=== PATIENT | male | born 1960 | race African-American/Black ===

== ENCOUNTER 2021-12-23 10:27 | Inpatient (IN) ==
[2021-12-23] MEDS ORDERED: SODIUM CHLORIDE 0.9% 1,000 ML IV STA (10:51)
[2021-12-23 11:01] LABS: Basophils # 0.1 10*3/uL (0.0-0.2); Basophils % 0.5 % (0.0-0.8); Eosinophils # 0.2 10*3/uL (0.0-0.87); Eosinophils % 1.6 % (0.00-10.9); Hematocrit 29.5 VOL% (42.0-52.0); Hemoglobin 8.7 GM/DL (14.0-18.0); Immature Granulocytes % 1.1 %; Immature Granulocytes Absolute 0.12 #; Lymphocytes # 2.6 10*3/uL (1.4-4.0); Lymphocytes % 23.4 % (21.2-54.2); Mean Corpuscular HGB Conc 29.5 GM/DL (32-36); Mean Corpuscular Volume 98.7 FL (87-102); Monocytes # 0.7 10*3/uL (0.11-0.8); Monocytes % 6.3 % (1.7-12.7); NRBC # 0.04 10*3/uL; Neutrophils % 67.1 % (38.7-73.9); Platelet Count 452 T/CUMM (130-400); Red Blood Count 2.99 MC/CUMM (3.8-5.5); Red Cell Distribution Width 15.9 % (9.3-17.3)
[2021-12-23 11:14] LABS: Albumin 2.3 G/DL (3.4-5.0); Bilirubin,Total 0.5 MG/DL (0.20-1.00); Calcium 9.3 MG/DL (8.5-10.1); Osmolality,Calculated 335.9 MOS/KG (273-304); PT Patient Result 11.4 SECS (10.5-12.0); Partial Thromboplastin Time 26.6 SECS (23.7-32.9); Potassium 3.4 MMOL/L (3.5-5.1); Total Protein 6.9 G/DL (6.4-8.2)
[2021-12-23 12:08] LABS: Bacteria,Urine Many /HPF (Few); Bilirubin,Urine Negative (Negative); Blood, Urine Moderate mg/dL (Negative); Glucose,Urine (UA) Negative (Negative); Ketones,Urine Negative (Negative); Mucus,Urine Many /LPF (Occasional); Nitrite,Urine Negative (Negative); Protein,Urine 100 mg/dL (Negative); RBC,Urine 23 /HPF (0-4); Urine Appearance Cloudy (Clear); Urine Color Yellow (Yellow); Urine Specific Gravity 1.015 (1.001-1.035); Urine Urobilinogen 0.2 eU/dL (<2.0)
[2021-12-23] MEDS ORDERED: LEVOFLOXACIN INJ 250 MG/50 ML PREMIX IV SCH (13:30)
[2021-12-23] MEDS ORDERED: SODIUM CHLORIDE 0.45% 500 ML IV ONE (13:50)
[2021-12-23] MEDS ORDERED: GLUCAGON 1 MG VIAL IM PRN (14:32)
[2021-12-23] MEDS ORDERED: DEXTROSE 10% 250 ML BAG IV PRN (14:32)
[2021-12-23] MEDS ORDERED: POTASSIUM CHLORIDE 20 MEQ TABLET PO PRN (14:38)
[2021-12-23] MEDS ORDERED: cefTRIAXone 1,000 MG in SODIUM CHLORIDE 0.9% 100 ML IV SCH (15:30)
[2021-12-23] MEDS: DEXTROSE 5% 1,000 ML IV SCH (16:00)
[2021-12-23 19:28] LABS: Calcium 8.9 MG/DL (8.5-10.1); Osmolality,Calculated 335.4 MOS/KG (273-304)
[2021-12-23 20:22] LABS: Calcium 9.1 MG/DL (8.5-10.1); Osmolality,Calculated 329.1 MOS/KG (273-304); Potassium 4.7 MMOL/L (3.5-5.1)
[2021-12-24 01:15] LABS: Basophils % 0.3 % (0.0-0.8); Eosinophils # 0.2 10*3/uL (0.0-0.87); Eosinophils % 2.3 % (0.00-10.9); Hematocrit 25.7 VOL% (42.0-52.0); Hemoglobin 7.6 GM/DL (14.0-18.0); Immature Granulocytes Absolute 0.09 #; Lymphocytes % 23.3 % (21.2-54.2); Mean Corpuscular HGB Conc 29.6 GM/DL (32-36); Mean Corpuscular Volume 98.1 FL (87-102); Mean Platelet Volume 8.8 FL (9.6-12.0); Monocytes # 0.5 10*3/uL (0.11-0.8); Monocytes % 5.9 % (1.7-12.7); Neutrophils % 67.2 % (38.7-73.9); Platelet Count 356 T/CUMM (130-400); Red Blood Count 2.62 MC/CUMM (3.8-5.5); Red Cell Distribution Width 15.8 % (9.3-17.3); White Blood Count 8.7 T/CUMM (4-12)
[2021-12-24] MEDS: DEXTROSE 5% 1,000 ML IV SCH ×6 (01:20→19:16)
[2021-12-24 01:30] LABS: Phosphorous 4.4 MG/DL (2.5-4.9)
[2021-12-24 01:33] LABS: Albumin 2.1 G/DL (3.4-5.0); Bilirubin,Total 0.6 MG/DL (0.20-1.00); Calcium 9.1 MG/DL (8.5-10.1); Potassium 2.7 MMOL/L (3.5-5.1); Total Protein 6.9 G/DL (6.4-8.2)
[2021-12-24 07:49] LABS: Calcium 8.6 MG/DL (8.5-10.1); Osmolality,Calculated 327.4 MOS/KG (273-304); Potassium 3.2 MMOL/L (3.5-5.1)
[2021-12-24] MEDS ORDERED: POTASSIUM BICARB EFFERVESCENT 20 MEQ TAB.EFF PEG ONE (12:21)
[2021-12-24 12:52] LABS: Calcium 8.7 MG/DL (8.5-10.1); Osmolality,Calculated 323.7 MOS/KG (273-304); Potassium 3.2 MMOL/L (3.5-5.1)
[2021-12-24 13:10] LABS: Hematocrit 25.4 VOL% (42.0-52.0); Hemoglobin 7.6 GM/DL (14.0-18.0)
[2021-12-24] MEDS: cefTRIAXone 2,000 MG in SODIUM CHLORIDE 0.9% 100 ML IV SCH (15:56)
[2021-12-25] MEDS: DEXTROSE 5% 1,000 ML IV SCH ×3 (00:32→18:30)
[2021-12-25 05:16] LABS: Basophils % 0.4 % (0.0-0.8); Eosinophils # 0.3 10*3/uL (0.0-0.87); Eosinophils % 3.4 % (0.00-10.9); Hematocrit 24.3 VOL% (42.0-52.0); Hemoglobin 7.2 GM/DL (14.0-18.0); Immature Granulocytes % 1.1 %; Immature Granulocytes Absolute 0.08 #; Lymphocytes # 1.7 10*3/uL (1.4-4.0); Lymphocytes % 23.8 % (21.2-54.2); Mean Corpuscular HGB Conc 29.6 GM/DL (32-36); Monocytes # 0.3 10*3/uL (0.11-0.8); Monocytes % 4.4 % (1.7-12.7); NRBC # 0.03 10*3/uL; Neutrophils % 66.9 % (38.7-73.9); Platelet Count 358 T/CUMM (130-400); Red Blood Count 2.53 MC/CUMM (3.8-5.5); Red Cell Distribution Width 15.2 % (9.3-17.3); White Blood Count 7.3 T/CUMM (4-12)
[2021-12-25 05:45] LABS: Alanine Aminotransferase 237 U/L (16-61); Albumin 2.1 G/DL (3.4-5.0); Alkaline Phosphatase 159 U/L (45-117); Aspartate Amino Transferase 148 U/L (0-37); Bilirubin,Total < 0.39 MG/DL (0.20-1.00); Blood Urea Nitrogen 78 MG/DL (7-18); Calcium 8.4 MG/DL (8.5-10.1); Carbon Dioxide 24 MMOL/L (21-32); Chloride 106 MMOL/L (98-107); Glucose 201 MG/DL (74-106); Osmolality,Calculated 307.4 MOS/KG (273-304); Potassium 3.5 MMOL/L (3.5-5.1); Sodium 140 MMOL/L (136-145); Total Protein 6.7 G/DL (6.4-8.2)
[2021-12-25 05:52] LABS: Folate 18.82 NG/ML (5.38-24.0)
[2021-12-25 10:12] LABS: Hepatitis B Core IgM Quant < 0.05 Index; Hepatitis B Surface Ag Quant < 0.10 Index; Hepatitis B Surface Ag Result Non-Reactive (NonReactive); Hepatitis C Virus Ab Quant 0.12 Index; Hepatitis C Virus Ab Result Non-Reactive (NonReactive)
[2021-12-25] MEDS: ASPIRIN CHEW 81 MG TABLET PO SCH (10:28)
[2021-12-25] MEDS: amLODIPine 2.5 MG TABLET PEG SCH (10:29)
[2021-12-25] MEDS: INSULIN GLARGINE 100 UNIT/ML SUBCUT SCH (10:29)
[2021-12-25] MEDS: INSULIN LISPRO 100 UNIT/ML SUBCUT SCH ×2 (12:41→19:03)
[2021-12-25] MEDS ORDERED: SODIUM CHLORIDE 0.9% 1,000 ML IV PRN (14:12)
[2021-12-25] MEDS: cefTRIAXone 2,000 MG in SODIUM CHLORIDE 0.9% 100 ML IV SCH (16:22)
[2021-12-25] MEDS: METOPROLOL TARTRATE 50 MG TABLET PEG SCH (22:16)
[2021-12-26] MEDS: ONDANSETRON 4 MG/2 ML VIAL IV PRN (01:15)
[2021-12-26] MEDS: INSULIN LISPRO 100 UNIT/ML SUBCUT SCH ×4 (02:39→17:24)
[2021-12-26 06:09] LABS: Basophils % 0.2 % (0.0-0.8); Eosinophils # 0.3 10*3/uL (0.0-0.87); Eosinophils % 2.5 % (0.00-10.9); Immature Granulocytes % 0.9 %; Immature Granulocytes Absolute 0.09 #; Lymphocytes # 1.7 10*3/uL (1.4-4.0); Lymphocytes % 16.2 % (21.2-54.2); Mean Corpuscular Volume 92.9 FL (87-102); Mean Platelet Volume 9.1 FL (9.6-12.0); Monocytes # 0.5 10*3/uL (0.11-0.8); NRBC # 0.02 10*3/uL; Neutrophils % 75.2 % (38.7-73.9); Platelet Count 342 T/CUMM (130-400); Red Cell Distribution Width 15.9 % (9.3-17.3)
[2021-12-26 06:11] LABS: Red Blood Count 3.12 MC/CUMM (3.8-5.5); White Blood Count 10.2 T/CUMM (4-12)
[2021-12-26 06:33] LABS: Albumin 2.2 G/DL (3.4-5.0); Bilirubin,Total 0.4 MG/DL (0.20-1.00); Calcium 9.4 MG/DL (8.5-10.1); Osmolality,Calculated 300.4 MOS/KG (273-304); Potassium 3.7 MMOL/L (3.5-5.1); Total Protein 7.1 G/DL (6.4-8.2)
[2021-12-26] MEDS ORDERED: INSULIN GLARGINE 100 UNIT/ML SUBCUT SCH (09:00)
[2021-12-26] MEDS: POLYETHYLENE GLYCOL POWDER 17 GM PACK PEG SCH (11:26)
[2021-12-26] MEDS: ASPIRIN CHEW 81 MG TABLET PO SCH (11:26)
[2021-12-26] MEDS: amLODIPine 2.5 MG TABLET PEG SCH (11:26)
[2021-12-26] MEDS: METOPROLOL TARTRATE 50 MG TABLET PEG SCH ×2 (11:27→21:30)
[2021-12-26] MEDS: INSULIN GLARGINE 100 UNIT/ML SUBCUT SCH (11:27)
[2021-12-26] MEDS: DEXTROSE 5% 1,000 ML IV SCH ×2 (13:01→21:29)
[2021-12-26] MEDS: cefTRIAXone 2,000 MG in SODIUM CHLORIDE 0.9% 100 ML IV SCH (16:49)
[2021-12-27] MEDS: INSULIN LISPRO 100 UNIT/ML SUBCUT SCH ×5 (01:45→23:13)
[2021-12-27 05:36] LABS: Basophils % 0.2 % (0.0-0.8); Eosinophils # 0.2 10*3/uL (0.0-0.87); Eosinophils % 2.1 % (0.00-10.9); Hemoglobin 9.6 GM/DL (14.0-18.0); Lymphocytes # 1.9 10*3/uL (1.4-4.0); Lymphocytes % 18.9 % (21.2-54.2); Mean Corpuscular Volume 92.6 FL (87-102); Mean Platelet Volume 9.4 FL (9.6-12.0); Monocytes # 0.7 10*3/uL (0.11-0.8); Monocytes % 6.7 % (1.7-12.7); Neutrophils % 71.1 % (38.7-73.9); Platelet Count 295 T/CUMM (130-400); Red Blood Count 3.24 MC/CUMM (3.8-5.5); Red Cell Distribution Width 15.9 % (9.3-17.3); White Blood Count 9.9 T/CUMM (4-12)
[2021-12-27 05:56] LABS: Alanine Aminotransferase 152 U/L (16-61); Albumin 2.4 G/DL (3.4-5.0); Alkaline Phosphatase 145 U/L (45-117); Aspartate Amino Transferase 55 U/L (0-37); Bilirubin,Total < 0.39 MG/DL (0.20-1.00); Blood Urea Nitrogen 57 MG/DL (7-18); Calcium 9.1 MG/DL (8.5-10.1); Carbon Dioxide 24 MMOL/L (21-32); Chloride 105 MMOL/L (98-107); Glucose 186 MG/DL (74-106); Osmolality,Calculated 295.7 MOS/KG (273-304); Potassium 3.9 MMOL/L (3.5-5.1); Sodium 138 MMOL/L (136-145); Total Protein 7.7 G/DL (6.4-8.2)
[2021-12-27] MEDS: INSULIN GLARGINE 100 UNIT/ML SUBCUT SCH (08:34)
[2021-12-27] MEDS: POLYETHYLENE GLYCOL POWDER 17 GM PACK PEG SCH (08:34)
[2021-12-27] MEDS: ASPIRIN CHEW 81 MG TABLET PO SCH (08:34)
[2021-12-27] MEDS: amLODIPine 2.5 MG TABLET PEG SCH (08:35)
[2021-12-27] MEDS: METOPROLOL TARTRATE 50 MG TABLET PEG SCH ×2 (08:35→20:34)
[2021-12-27] MEDS: ERTAPENEM 1,000 MG in SODIUM CHLORIDE 0.9% 100 ML IV SCH (08:47)
[2021-12-27] MEDS: DEXTROSE 5% 1,000 ML IV SCH ×3 (08:47→21:00)
[2021-12-28] MEDS: INSULIN LISPRO 100 UNIT/ML SUBCUT SCH ×3 (06:15→18:00)
[2021-12-28] MEDS: ASPIRIN CHEW 81 MG TABLET PO SCH (10:09)
[2021-12-28] MEDS: amLODIPine 2.5 MG TABLET PEG SCH (10:09)
[2021-12-28] MEDS: METOPROLOL TARTRATE 50 MG TABLET PEG SCH ×2 (10:09→20:34)
[2021-12-28] MEDS: POLYETHYLENE GLYCOL POWDER 17 GM PACK PEG SCH (10:10)
[2021-12-28] MEDS: INSULIN GLARGINE 100 UNIT/ML SUBCUT SCH (10:11)
[2021-12-28] MEDS: ERTAPENEM 1,000 MG in SODIUM CHLORIDE 0.9% 100 ML IV SCH (10:13)
[2021-12-28] MEDS: DEXTROSE 5% 1,000 ML IV SCH (15:05)
[2021-12-28] MEDS: ONDANSETRON 4 MG/2 ML VIAL IV PRN (23:52)
[2021-12-29] MEDS: INSULIN LISPRO 100 UNIT/ML SUBCUT SCH ×3 (00:35→12:27)
[2021-12-29 06:16] LABS: Calcium 9.3 MG/DL (8.5-10.1); Osmolality,Calculated 289.5 MOS/KG (273-304); Potassium 4.4 MMOL/L (3.5-5.1)
[2021-12-29] MEDS: ASPIRIN CHEW 81 MG TABLET PO SCH (10:27)
[2021-12-29] MEDS: METOPROLOL TARTRATE 50 MG TABLET PEG SCH (10:28)
[2021-12-29] MEDS: amLODIPine 2.5 MG TABLET PEG SCH (10:28)
[2021-12-29] MEDS: POLYETHYLENE GLYCOL POWDER 17 GM PACK PEG SCH (10:28)
[2021-12-29] MEDS: ERTAPENEM 1,000 MG in SODIUM CHLORIDE 0.9% 100 ML IV SCH (10:29)
[2021-12-29] MEDS: INSULIN GLARGINE 100 UNIT/ML SUBCUT SCH (10:53)
[2021-12-29 12:02] VITALS: BP 126/75
== END 2021-12-29 14:55 | DRG 689 ==
LOC: N.ED 10:27 → N.EDINP 14:32 → SUATTDRO 14:32 → N.EDINP 18:18 → N.TELEN 18:27
PROVIDERS: ADMIT Internal Medicine Geriatric Medicine; ATTEND Family Medicine

== ENCOUNTER 2022-02-07 18:33 | Inpatient (IN) ==
[2022-02-07] MEDS ORDERED: SODIUM CHLORIDE 0.9% 500 ML IV STA (19:24)
[2022-02-07] MEDS ORDERED: ONDANSETRON 4 MG/2 ML VIAL IV STA (19:24)
[2022-02-07] MEDS ORDERED: methylPREDNISolone SOD SUC 125 MG/2 ML VIAL IV STA (19:24)
[2022-02-07] MEDS ORDERED: ALBUTEROL/IPRATROPIUM 3 ML NEB RESP TX STA (19:24)
[2022-02-07] MEDS ORDERED: LEVOFLOXACIN INJ 750 MG/150 ML PREMIX IV STA (21:06)
[2022-02-07 21:31] LABS: Albumin 2.3 G/DL (3.4-5.0); Bilirubin,Total 0.5 MG/DL (0.20-1.00); Calcium 8.3 MG/DL (8.5-10.1); Osmolality,Calculated 319.3 MOS/KG (273-304); Potassium 3.1 MMOL/L (3.5-5.1); Total Protein 7.9 G/DL (6.4-8.2)
[2022-02-07 21:35] LABS: Hematocrit 24.6 VOL% (42.0-52.0); Hemoglobin 7.2 GM/DL (14.0-18.0); Immature Granulocytes % 0.5 %; Immature Granulocytes Absolute 0.03 #; Lymphocytes # 2.5 10*3/uL (1.4-4.0); Lymphocytes % 38.5 % (21.2-54.2); Mean Corpuscular HGB Conc 29.3 GM/DL (32-36); Mean Corpuscular Volume 97.2 FL (87-102); Mean Platelet Volume 9.6 FL (9.6-12.0); Monocytes # 0.2 10*3/uL (0.11-0.8); Monocytes % 2.6 % (1.7-12.7); Neutrophils % 58.4 % (38.7-73.9); Platelet Count 165 T/CUMM (130-400); Red Blood Count 2.53 MC/CUMM (3.8-5.5); Red Cell Distribution Width 19.7 % (9.3-17.3); White Blood Count 6.5 T/CUMM (4-12)
[2022-02-07] MEDS ORDERED: SODIUM CHLORIDE 0.9% 1,000 ML IV STA (22:02)
[2022-02-07 22:35] LABS: Band Neutrophils 1 % (0-10); Lymphocytes 26 % (20-55); Platelet Estimate Adequate; Total Cells Counted 100
[2022-02-07 22:48] LABS: Bilirubin,Urine Negative (Negative); Blood, Urine Trace mg/dL (Negative); Glucose,Urine (UA) Negative (Negative); Ketones,Urine Negative (Negative); Nitrite,Urine Negative (Negative); Protein,Urine 100 mg/dL (Negative); RBC,Urine 0-4 /HPF (0-4); Urine Appearance Clear (Clear); Urine Color Yellow (Yellow); Urine Urobilinogen 0.2 eU/dL (<2.0); Urine pH 5.5 (4.5-8.0)
[2022-02-07 22:49] LABS: Amorphous Crystals,Urine Moderate /HPF (Few)
[2022-02-07] MEDS ORDERED: ACETAMINOPHEN 325 MG TABLET PEG PRN (23:10)
[2022-02-07] MEDS ORDERED: ONDANSETRON 4 MG/2 ML VIAL IV PRN (23:10)
[2022-02-07] MEDS ORDERED: GLUCAGON 1 MG VIAL IM PRN (23:10)
[2022-02-07] MEDS ORDERED: DEXTROSE 10% 250 ML BAG IV PRN (23:31)
[2022-02-08] MEDS: ALBUTEROL/IPRATROPIUM 3 ML NEB RESP TX SCH ×4 (01:20→20:00)
[2022-02-08] MEDS: INSULIN REGULAR 100 UNIT/ML SUBCUT SCH ×5 (01:25→19:17)
[2022-02-08] MEDS: LACTATED RINGERS 1,000 ML IV SCH ×2 (03:14→14:21)
[2022-02-08] MEDS ORDERED: POTASSIUM CHLORIDE RIDER 10 MEQ/100 ML PREMIX IV PRN (05:57)
[2022-02-08] MEDS ORDERED: POTASSIUM BICARB EFFERVESCENT 20 MEQ TAB.EFF PER TUBE PRN (05:57)
[2022-02-08] MEDS: ASCORBIC ACID 500 MG TABLET PEG SCH ×2 (08:44→22:53)
[2022-02-08] MEDS: PANTOPRAZOLE 40 MG VIAL IV SCH (08:44)
[2022-02-08] MEDS: ENOXAPARIN 30 MG/0.3 ML SYRINGE SUBCUT SCH (08:45)
[2022-02-08] MEDS ORDERED: CHOLECALCIFEROL 1,000 UNIT TABLET PEG SCH (09:00)
[2022-02-08] MEDS ORDERED: DEXAMETHASONE 4 MG/1 ML VIAL IV SCH (09:00)
[2022-02-08] MEDS ORDERED: ZINC GLUCONATE 50 MG TABLET PEG SCH (09:00)
[2022-02-08 09:01] LABS: INR 1.1; PT Patient Result 11.6 SECS (10.1-12.1)
[2022-02-08 09:12] LABS: Calcium 8.4 MG/DL (8.5-10.1); Osmolality,Calculated 323.8 MOS/KG (273-304); Potassium 3.3 MMOL/L (3.5-5.1)
[2022-02-08 09:29] LABS: Ferritin 6333.5 ng/mL (26-388)
[2022-02-08 09:43] LABS: Hematocrit 20.2 VOL% (42.0-52.0); Immature Granulocytes % 0.4 %; Immature Granulocytes Absolute 0.02 #; Lymphocytes # 0.4 10*3/uL (1.4-4.0); Lymphocytes % 9.5 % (21.2-54.2); Mean Corpuscular HGB Conc 29.2 GM/DL (32-36); Mean Corpuscular Volume 96.2 FL (87-102); Mean Platelet Volume 9.8 FL (9.6-12.0); Monocytes # 0.1 10*3/uL (0.11-0.8); Monocytes % 1.8 % (1.7-12.7); Neutrophils % 88.3 % (38.7-73.9); Platelet Count 149 T/CUMM (130-400); Red Cell Distribution Width 19.2 % (9.3-17.3); White Blood Count 4.5 T/CUMM (4-12)
[2022-02-08 10:08] LABS: Hemoglobin 5.9 GM/DL (14.0-18.0)
[2022-02-08 10:10] LABS: Hypochromia 1+; Lymphocytes 8 % (20-55); Microcytosis 1+; Platelet Estimate Adequate; Total Cells Counted 100
[2022-02-08 11:51] LABS: Hematocrit 21.4 VOL% (42.0-52.0)
[2022-02-08 11:55] LABS: Hemoglobin 6.2 GM/DL (14.0-18.0)
[2022-02-08] MEDS ORDERED: SODIUM CHLORIDE 0.9% 1,000 ML IV PRN (12:07)
[2022-02-08] MEDS ORDERED: cefTRIAXone 1,000 MG VIAL IV SCH (13:00)
[2022-02-08] MEDS: CETIRIZINE 10 MG TABLET PO SCH (14:20)
[2022-02-08] MEDS: FAMOTIDINE 20 MG TABLET PO SCH ×2 (14:21→22:54)
[2022-02-08] MEDS: methylPREDNISolone SOD SUC 40 MG/1 ML VIAL IV SCH ×2 (14:22→22:54)
[2022-02-08] MEDS: AZITHROMYCIN INJ 500 MG in SODIUM CHLORIDE 0.9% 250 ML IV SCH (14:22)
[2022-02-08] MEDS: cefTRIAXone 1,000 MG in SODIUM CHLORIDE 0.9% 100 ML IV SCH (15:26)
[2022-02-08] MEDS: ZINC OXIDE 16% PASTE 57 GM TUBE TOP SCH ×2 (15:27→22:55)
[2022-02-08] MEDS: CHOLECALCIFEROL 5,000 UNIT TABLET PEG SCH ×2 (15:27→22:53)
[2022-02-08] MEDS: ATORVASTATIN 80 MG TABLET PEG SCH (22:52)
[2022-02-08] MEDS: MELATONIN 3 MG TABLET PO SCH (22:52)
[2022-02-09] MEDS: ALBUTEROL/IPRATROPIUM 3 ML NEB RESP TX SCH ×4 (00:11→19:49)
[2022-02-09] MEDS: INSULIN REGULAR 100 UNIT/ML SUBCUT SCH ×4 (02:46→17:57)
[2022-02-09] MEDS: methylPREDNISolone SOD SUC 40 MG/1 ML VIAL IV SCH ×4 (04:48→21:32)
[2022-02-09 07:15] LABS: Basophils % 0.1 % (0.0-0.8); Lymphocytes # 0.4 10*3/uL (1.4-4.0)
[2022-02-09 07:20] LABS: Hematocrit 29.5 VOL% (42.0-52.0); Immature Granulocytes % 0.8 %; Immature Granulocytes Absolute 0.07 #; Lymphocytes % 5.3 % (21.2-54.2); Mean Corpuscular HGB Conc 30.8 GM/DL (32-36); Mean Corpuscular Volume 91.9 FL (87-102); Mean Platelet Volume 9.2 FL (9.6-12.0); Monocytes # 0.2 10*3/uL (0.11-0.8); Monocytes % 2.8 % (1.7-12.7); NRBC # 0.03 10*3/uL; Platelet Count 155 T/CUMM (130-400); Red Blood Count 3.21 MC/CUMM (3.8-5.5); Red Cell Distribution Width 18.5 % (9.3-17.3)
[2022-02-09 07:21] LABS: Hemoglobin 9.1 GM/DL (14.0-18.0); White Blood Count 8.3 T/CUMM (4-12)
[2022-02-09 07:43] LABS: Lymphocytes 3 % (20-55); Total Cells Counted 100
[2022-02-09 07:44] LABS: Hypochromia Slight; Microcytosis Slight; Platelet Estimate Adequate
[2022-02-09 07:48] LABS: Bilirubin,Total 0.4 MG/DL (0.20-1.00); Calcium 7.8 MG/DL (8.5-10.1); Ferritin 5572.4 ng/mL (26-388); Osmolality,Calculated 337.4 MOS/KG (273-304); Potassium 3.8 MMOL/L (3.5-5.1)
[2022-02-09] MEDS: PANTOPRAZOLE 40 MG VIAL IV SCH (08:37)
[2022-02-09] MEDS: ENOXAPARIN 30 MG/0.3 ML SYRINGE SUBCUT SCH (08:38)
[2022-02-09] MEDS: ASCORBIC ACID 500 MG TABLET PEG SCH ×2 (08:38→21:30)
[2022-02-09] MEDS: FAMOTIDINE 20 MG TABLET PO SCH ×2 (08:39→21:31)
[2022-02-09] MEDS: LACTATED RINGERS 1,000 ML IV SCH (08:39)
[2022-02-09] MEDS: CHOLECALCIFEROL 5,000 UNIT TABLET PEG SCH ×2 (08:39→21:31)
[2022-02-09] MEDS: CETIRIZINE 10 MG TABLET PO SCH (08:39)
[2022-02-09] MEDS: ZINC GLUCONATE 50 MG TABLET PEG SCH (08:39)
[2022-02-09] MEDS: ZINC OXIDE 16% PASTE 57 GM TUBE TOP SCH ×2 (08:40→21:33)
[2022-02-09] MEDS: AZITHROMYCIN INJ 500 MG in SODIUM CHLORIDE 0.9% 250 ML IV SCH (13:14)
[2022-02-09] MEDS: cefTRIAXone 1,000 MG in SODIUM CHLORIDE 0.9% 100 ML IV SCH (15:00)
[2022-02-09] MEDS ORDERED: LEVOFLOXACIN INJ 500 MG/100 ML PREMIX IV SCH (21:00)
[2022-02-09] MEDS: MELATONIN 3 MG TABLET PO SCH (21:30)
[2022-02-09] MEDS: ATORVASTATIN 80 MG TABLET PEG SCH (21:36)
[2022-02-10] MEDS: ALBUTEROL/IPRATROPIUM 3 ML NEB RESP TX SCH ×4 (00:55→20:20)
[2022-02-10] MEDS: INSULIN REGULAR 100 UNIT/ML SUBCUT SCH ×4 (02:16→17:36)
[2022-02-10] MEDS: methylPREDNISolone SOD SUC 40 MG/1 ML VIAL IV SCH ×4 (04:58→21:30)
[2022-02-10 06:44] LABS: Immature Granulocytes % 1.1 %; Immature Granulocytes Absolute 0.09 #; Lymphocytes # 0.4 10*3/uL (1.4-4.0); Lymphocytes % 4.1 % (21.2-54.2); Mean Corpuscular Volume 92.1 FL (87-102); Mean Platelet Volume 9.4 FL (9.6-12.0); Monocytes # 0.4 10*3/uL (0.11-0.8); Monocytes % 4.9 % (1.7-12.7); NRBC # 0.04 10*3/uL; Neutrophils % 89.9 % (38.7-73.9); Platelet Count 188 T/CUMM (130-400); Red Blood Count 3.15 MC/CUMM (3.8-5.5); Red Cell Distribution Width 18.7 % (9.3-17.3); White Blood Count 8.5 T/CUMM (4-12)
[2022-02-10 07:07] LABS: Hypochromia Slight; Lymphocytes 2 % (20-55); Microcytosis Slight; Nucleated Red Blood Cells 1 /100 WBC (0-5); Platelet Estimate Adequate; Total Cells Counted 100
[2022-02-10 07:20] LABS: Alanine Aminotransferase 114 U/L (16-61); Albumin 2.1 G/DL (3.4-5.0); Alkaline Phosphatase 129 U/L (45-117); Aspartate Amino Transferase 50 U/L (0-37); Bilirubin,Total < 0.39 MG/DL (0.20-1.00); Blood Urea Nitrogen 127 MG/DL (7-18); Calcium 7.7 MG/DL (8.5-10.1); Carbon Dioxide 21 MMOL/L (21-32); Chloride 116 MMOL/L (98-107); Glucose 227 MG/DL (74-106); Potassium 3.9 MMOL/L (3.5-5.1); Sodium 150 MMOL/L (136-145); Total Protein 6.9 G/DL (6.4-8.2)
[2022-02-10] MEDS: PANTOPRAZOLE 40 MG VIAL IV SCH (08:26)
[2022-02-10] MEDS: ENOXAPARIN 30 MG/0.3 ML SYRINGE SUBCUT SCH (08:27)
[2022-02-10] MEDS: CHOLECALCIFEROL 5,000 UNIT TABLET PEG SCH ×2 (08:28→21:31)
[2022-02-10] MEDS: ASCORBIC ACID 500 MG TABLET PEG SCH ×2 (08:28→21:30)
[2022-02-10] MEDS: ZINC GLUCONATE 50 MG TABLET PEG SCH (08:28)
[2022-02-10] MEDS: FAMOTIDINE 20 MG TABLET PO SCH ×2 (08:28→21:31)
[2022-02-10] MEDS: ZINC OXIDE 16% PASTE 57 GM TUBE TOP SCH ×2 (08:29→21:30)
[2022-02-10] MEDS: CETIRIZINE 10 MG TABLET PO SCH (08:30)
[2022-02-10] MEDS: AZITHROMYCIN INJ 500 MG in SODIUM CHLORIDE 0.9% 250 ML IV SCH (12:26)
[2022-02-10] MEDS: cefTRIAXone 1,000 MG in SODIUM CHLORIDE 0.9% 100 ML IV SCH (15:09)
[2022-02-10] MEDS: SODIUM CHLORIDE 0.45% 1,000 ML IV SCH (17:35)
[2022-02-10] MEDS: ATORVASTATIN 80 MG TABLET PEG SCH (21:31)
[2022-02-10] MEDS: MELATONIN 3 MG TABLET PO SCH (21:31)
[2022-02-11] MEDS: ALBUTEROL/IPRATROPIUM 3 ML NEB RESP TX SCH ×4 (00:50→19:28)
[2022-02-11] MEDS: INSULIN REGULAR 100 UNIT/ML SUBCUT SCH ×4 (01:53→17:06)
[2022-02-11 06:05] LABS: Calcium 7.4 MG/DL (8.5-10.1); Osmolality,Calculated 352.1 MOS/KG (273-304); Potassium 4.5 MMOL/L (3.5-5.1)
[2022-02-11] MEDS: methylPREDNISolone SOD SUC 40 MG/1 ML VIAL IV SCH ×3 (06:08→21:01)
[2022-02-11] MEDS: SODIUM CHLORIDE 0.45% 1,000 ML IV SCH ×2 (06:18→21:04)
[2022-02-11] MEDS ORDERED: INSULIN NPH 100 UNIT/ML SUBCUT SCH (09:00)
[2022-02-11] MEDS: ZINC OXIDE 16% PASTE 57 GM TUBE TOP SCH ×2 (09:38→21:01)
[2022-02-11] MEDS: ENOXAPARIN 30 MG/0.3 ML SYRINGE SUBCUT SCH (09:39)
[2022-02-11] MEDS: METOPROLOL TARTRATE 25 MG TABLET PO SCH ×2 (09:39→20:56)
[2022-02-11] MEDS: FAMOTIDINE 20 MG TABLET PO SCH ×2 (09:39→20:55)
[2022-02-11] MEDS: ASCORBIC ACID 500 MG TABLET PEG SCH ×2 (09:39→20:56)
[2022-02-11] MEDS: PANTOPRAZOLE 40 MG VIAL IV SCH (09:39)
[2022-02-11] MEDS: CETIRIZINE 10 MG TABLET PO SCH (09:40)
[2022-02-11] MEDS: ZINC GLUCONATE 50 MG TABLET PEG SCH (09:40)
[2022-02-11] MEDS: CHOLECALCIFEROL 5,000 UNIT TABLET PEG SCH ×2 (09:40→20:56)
[2022-02-11] MEDS: AZITHROMYCIN INJ 500 MG in SODIUM CHLORIDE 0.9% 250 ML IV SCH (12:25)
[2022-02-11] MEDS: cefTRIAXone 1,000 MG in SODIUM CHLORIDE 0.9% 100 ML IV SCH (14:49)
[2022-02-11] MEDS: MELATONIN 3 MG TABLET PO SCH (20:55)
[2022-02-11] MEDS: ATORVASTATIN 80 MG TABLET PEG SCH (20:56)
[2022-02-11] MEDS: INSULIN NPH 100 UNIT/ML SUBCUT SCH (21:01)
[2022-02-12] MEDS: ALBUTEROL/IPRATROPIUM 3 ML NEB RESP TX SCH ×3 (00:05→13:30)
[2022-02-12] MEDS: INSULIN REGULAR 100 UNIT/ML SUBCUT SCH ×4 (00:25→17:09)
[2022-02-12] MEDS ORDERED: ACETAMINOPHEN 650 MG SUPP RECTAL ONE (00:45)
[2022-02-12 05:37] LABS: Calcium 7.4 MG/DL (8.5-10.1); Osmolality,Calculated 345.3 MOS/KG (273-304); Potassium 5.3 MMOL/L (3.5-5.1)
[2022-02-12] MEDS ORDERED: SODIUM POLYSTYRENE SULFATE 15 GM/60 ML BOTTLE PO ONE (07:55)
[2022-02-12] MEDS: SODIUM CHLORIDE 0.45% 1,000 ML IV SCH ×2 (09:32→22:04)
[2022-02-12] MEDS: ENOXAPARIN 30 MG/0.3 ML SYRINGE SUBCUT SCH (09:33)
[2022-02-12] MEDS: FAMOTIDINE 20 MG TABLET PO SCH ×2 (09:33→21:17)
[2022-02-12] MEDS: PANTOPRAZOLE 40 MG VIAL IV SCH (09:33)
[2022-02-12] MEDS: MIDODRINE 5 MG TABLET PO SCH ×2 (09:33→21:30)
[2022-02-12] MEDS: INSULIN NPH 100 UNIT/ML SUBCUT SCH ×2 (09:33→16:03)
[2022-02-12] MEDS: ZINC OXIDE 16% PASTE 57 GM TUBE TOP SCH ×2 (09:33→21:17)
[2022-02-12] MEDS: METOPROLOL TARTRATE 25 MG TABLET PO SCH ×2 (09:33→21:17)
[2022-02-12] MEDS: ASCORBIC ACID 500 MG TABLET PEG SCH ×2 (09:34→21:16)
[2022-02-12] MEDS: ZINC GLUCONATE 50 MG TABLET PEG SCH (09:34)
[2022-02-12] MEDS: CHOLECALCIFEROL 5,000 UNIT TABLET PEG SCH ×2 (09:34→21:17)
[2022-02-12] MEDS: methylPREDNISolone SOD SUC 40 MG/1 ML VIAL IV SCH (09:34)
[2022-02-12] MEDS: CETIRIZINE 10 MG TABLET PO SCH (09:34)
[2022-02-12] MEDS: guaiFENesin 200 MG/10 ML UDCUP PO SCH ×4 (10:26→21:16)
[2022-02-12] MEDS: AZITHROMYCIN INJ 500 MG in SODIUM CHLORIDE 0.9% 250 ML IV SCH (13:48)
[2022-02-12] MEDS: cefTRIAXone 1,000 MG in SODIUM CHLORIDE 0.9% 100 ML IV SCH (14:41)
[2022-02-12] MEDS: LACTATED RINGERS 1,000 ML IV SCH ×2 (20:16→20:17)
[2022-02-12] MEDS: MELATONIN 3 MG TABLET PO SCH (21:16)
[2022-02-12] MEDS: ATORVASTATIN 80 MG TABLET PEG SCH (21:17)
[2022-02-13] MEDS: ALBUTEROL/IPRATROPIUM 3 ML NEB RESP TX SCH ×4 (00:05→23:49)
[2022-02-13] MEDS: ACETYLCYSTEINE 20% 800 MG/4 ML VIAL RESP TX SCH ×4 (00:05→23:49)
[2022-02-13] MEDS: INSULIN REGULAR 100 UNIT/ML SUBCUT SCH ×4 (00:05→18:16)
[2022-02-13] MEDS: guaiFENesin 200 MG/10 ML UDCUP PO SCH ×6 (01:57→21:34)
[2022-02-13 05:37] LABS: Calcium 7.2 MG/DL (8.5-10.1); Osmolality,Calculated 337.1 MOS/KG (273-304); Potassium 4.8 MMOL/L (3.5-5.1)
[2022-02-13 05:40] LABS: Phosphorous 2.7 MG/DL (2.5-4.9)
[2022-02-13] MEDS: INSULIN NPH 100 UNIT/ML SUBCUT SCH ×2 (08:22→18:16)
[2022-02-13] MEDS: MIDODRINE 5 MG TABLET PO SCH ×2 (09:33→21:34)
[2022-02-13] MEDS: PANTOPRAZOLE 40 MG VIAL IV SCH (09:33)
[2022-02-13] MEDS: ZINC OXIDE 16% PASTE 57 GM TUBE TOP SCH ×2 (09:33→21:29)
[2022-02-13] MEDS: ENOXAPARIN 30 MG/0.3 ML SYRINGE SUBCUT SCH (09:33)
[2022-02-13] MEDS: methylPREDNISolone SOD SUC 40 MG/1 ML VIAL IV SCH (09:33)
[2022-02-13] MEDS: METOPROLOL TARTRATE 25 MG TABLET PO SCH ×2 (09:33→21:34)
[2022-02-13] MEDS: FAMOTIDINE 20 MG TABLET PO SCH ×2 (09:33→21:34)
[2022-02-13] MEDS: CETIRIZINE 10 MG TABLET PO SCH (09:34)
[2022-02-13] MEDS: CHOLECALCIFEROL 5,000 UNIT TABLET PEG SCH ×2 (09:34→21:34)
[2022-02-13] MEDS: ASCORBIC ACID 500 MG TABLET PEG SCH ×2 (09:34→21:34)
[2022-02-13] MEDS: ZINC GLUCONATE 50 MG TABLET PEG SCH (09:34)
[2022-02-13] MEDS: SODIUM CHLORIDE 0.45% 1,000 ML IV SCH (10:21)
[2022-02-13] MEDS: AZITHROMYCIN INJ 500 MG in SODIUM CHLORIDE 0.9% 250 ML IV SCH (14:28)
[2022-02-13] MEDS: cefTRIAXone 1,000 MG in SODIUM CHLORIDE 0.9% 100 ML IV SCH (16:29)
[2022-02-13] MEDS: MELATONIN 3 MG TABLET PO SCH (21:33)
[2022-02-13] MEDS: ATORVASTATIN 80 MG TABLET PEG SCH (21:34)
[2022-02-14] MEDS: SODIUM CHLORIDE 0.45% 1,000 ML IV SCH ×2 (00:39→21:40)
[2022-02-14] MEDS: INSULIN REGULAR 100 UNIT/ML SUBCUT SCH ×4 (00:55→17:59)
[2022-02-14] MEDS: guaiFENesin 200 MG/10 ML UDCUP PO SCH ×6 (03:07→21:45)
[2022-02-14 05:24] LABS: Basophils % 0.1 % (0.0-0.8); Eosinophils % 0.1 % (0.00-10.9); Hematocrit 28.7 VOL% (42.0-52.0); Hemoglobin 8.6 GM/DL (14.0-18.0); Immature Granulocytes % 2.1 %; Immature Granulocytes Absolute 0.23 #; Lymphocytes # 1.6 10*3/uL (1.4-4.0); Lymphocytes % 14.4 % (21.2-54.2); Mean Platelet Volume 10.3 FL (9.6-12.0); Monocytes # 0.6 10*3/uL (0.11-0.8); Monocytes % 5.4 % (1.7-12.7); Neutrophils % 77.9 % (38.7-73.9); Platelet Count 237 T/CUMM (130-400); Red Blood Count 2.99 MC/CUMM (3.8-5.5); Red Cell Distribution Width 17.9 % (9.3-17.3)
[2022-02-14 05:42] LABS: Bilirubin,Total 0.4 MG/DL (0.20-1.00); Calcium 7.6 MG/DL (8.5-10.1); Osmolality,Calculated 342.3 MOS/KG (273-304); Potassium 5.2 MMOL/L (3.5-5.1); Total Protein 5.8 G/DL (6.4-8.2)
[2022-02-14] MEDS ORDERED: SODIUM POLYSTYRENE SULFATE 15 GM/60 ML BOTTLE PO ONE (06:45)
[2022-02-14] MEDS ORDERED: LIDOCAINE 2% 20 ML VIAL RESP TX ONE (07:30)
[2022-02-14] MEDS ORDERED: MIDAZOLAM 2 MG/2 ML VIAL IV ONE (07:30)
[2022-02-14] MEDS: ALBUTEROL/IPRATROPIUM 3 ML NEB RESP TX SCH ×3 (09:09→23:41)
[2022-02-14] MEDS: ACETYLCYSTEINE 20% 800 MG/4 ML VIAL RESP TX SCH ×2 (09:09→23:41)
[2022-02-14] MEDS: ENOXAPARIN 30 MG/0.3 ML SYRINGE SUBCUT SCH (09:54)
[2022-02-14] MEDS: CETIRIZINE 10 MG TABLET PO SCH (09:54)
[2022-02-14] MEDS: MIDODRINE 5 MG TABLET PO SCH ×2 (09:54→21:43)
[2022-02-14] MEDS: CHOLECALCIFEROL 5,000 UNIT TABLET PEG SCH ×2 (09:55→21:45)
[2022-02-14] MEDS: INSULIN NPH 100 UNIT/ML SUBCUT SCH ×2 (09:57→16:27)
[2022-02-14] MEDS: ASCORBIC ACID 500 MG TABLET PEG SCH ×2 (09:58→21:43)
[2022-02-14] MEDS: METOPROLOL TARTRATE 25 MG TABLET PO SCH ×2 (09:58→21:45)
[2022-02-14] MEDS: ZINC GLUCONATE 50 MG TABLET PEG SCH (09:59)
[2022-02-14] MEDS: PANTOPRAZOLE 40 MG VIAL IV SCH (09:59)
[2022-02-14] MEDS: FAMOTIDINE 20 MG TABLET PO SCH ×2 (09:59→21:45)
[2022-02-14] MEDS: methylPREDNISolone SOD SUC 40 MG/1 ML VIAL IV SCH (10:00)
[2022-02-14] MEDS: AZITHROMYCIN INJ 500 MG in SODIUM CHLORIDE 0.9% 250 ML IV SCH (12:43)
[2022-02-14] MEDS: ZINC OXIDE 16% PASTE 57 GM TUBE TOP SCH ×2 (12:44→21:45)
[2022-02-14] MEDS: cefTRIAXone 1,000 MG in SODIUM CHLORIDE 0.9% 100 ML IV SCH (14:09)
[2022-02-14] MEDS: MEROPENEM 500 MG in SODIUM CHLORIDE 0.9% 100 ML IV SCH (17:58)
[2022-02-14] MEDS: MELATONIN 3 MG TABLET PO SCH (21:43)
[2022-02-14] MEDS: ATORVASTATIN 80 MG TABLET PEG SCH (21:43)
[2022-02-15] MEDS: INSULIN REGULAR 100 UNIT/ML SUBCUT SCH ×5 (01:26→23:16)
[2022-02-15] MEDS: guaiFENesin 200 MG/10 ML UDCUP PO SCH ×6 (02:59→21:20)
[2022-02-15] MEDS: MEROPENEM 500 MG in SODIUM CHLORIDE 0.9% 100 ML IV SCH ×2 (05:02→16:26)
[2022-02-15 06:11] LABS: Basophils % 0.1 % (0.0-0.8); Eosinophils % 0.1 % (0.00-10.9); Hematocrit 27.9 VOL% (42.0-52.0); Hemoglobin 8.5 GM/DL (14.0-18.0); Immature Granulocytes Absolute 0.24 #; Lymphocytes # 1.4 10*3/uL (1.4-4.0); Lymphocytes % 11.5 % (21.2-54.2); Mean Corpuscular HGB Conc 30.5 GM/DL (32-36); Mean Corpuscular Volume 95.2 FL (87-102); Mean Platelet Volume 10.1 FL (9.6-12.0); Monocytes # 0.4 10*3/uL (0.11-0.8); Monocytes % 3.5 % (1.7-12.7); Neutrophils % 82.8 % (38.7-73.9); Platelet Count 237 T/CUMM (130-400); Red Blood Count 2.93 MC/CUMM (3.8-5.5); White Blood Count 12.3 T/CUMM (4-12)
[2022-02-15 06:33] LABS: Albumin 2.1 G/DL (3.4-5.0); Bilirubin,Total 0.4 MG/DL (0.20-1.00); Calcium 8.1 MG/DL (8.5-10.1); Osmolality,Calculated 338.1 MOS/KG (273-304); Potassium 4.7 MMOL/L (3.5-5.1); Total Protein 5.8 G/DL (6.4-8.2)
[2022-02-15] MEDS: ALBUTEROL/IPRATROPIUM 3 ML NEB RESP TX SCH ×3 (08:25→23:00)
[2022-02-15] MEDS: ACETYLCYSTEINE 20% 800 MG/4 ML VIAL RESP TX SCH ×3 (08:31→23:00)
[2022-02-15] MEDS: INSULIN NPH 100 UNIT/ML SUBCUT SCH ×2 (08:37→17:19)
[2022-02-15] MEDS: METOPROLOL TARTRATE 25 MG TABLET PO SCH ×2 (08:38→20:54)
[2022-02-15] MEDS: MIDODRINE 5 MG TABLET PO SCH ×2 (08:38→20:54)
[2022-02-15] MEDS: CHOLECALCIFEROL 5,000 UNIT TABLET PEG SCH ×2 (08:38→20:55)
[2022-02-15] MEDS: CETIRIZINE 10 MG TABLET PO SCH (08:38)
[2022-02-15] MEDS: FAMOTIDINE 20 MG TABLET PO SCH ×2 (08:38→20:54)
[2022-02-15] MEDS: ENOXAPARIN 30 MG/0.3 ML SYRINGE SUBCUT SCH (08:38)
[2022-02-15] MEDS: ZINC GLUCONATE 50 MG TABLET PEG SCH (08:38)
[2022-02-15] MEDS: ASCORBIC ACID 500 MG TABLET PEG SCH ×2 (08:38→20:54)
[2022-02-15] MEDS: methylPREDNISolone SOD SUC 40 MG/1 ML VIAL IV SCH (08:39)
[2022-02-15] MEDS: ZINC OXIDE 16% PASTE 57 GM TUBE TOP SCH ×2 (08:39→21:57)
[2022-02-15] MEDS: PANTOPRAZOLE 40 MG VIAL IV SCH (08:39)
[2022-02-15] MEDS: ATORVASTATIN 80 MG TABLET PEG SCH (20:54)
[2022-02-15] MEDS: MELATONIN 3 MG TABLET PO SCH (20:54)
[2022-02-16] MEDS: guaiFENesin 200 MG/10 ML UDCUP PO SCH ×6 (02:12→22:33)
[2022-02-16] MEDS: MEROPENEM 500 MG in SODIUM CHLORIDE 0.9% 100 ML IV SCH ×2 (04:27→16:07)
[2022-02-16 05:20] LABS: Basophils % 0.1 % (0.0-0.8); Hematocrit 26.2 VOL% (42.0-52.0); Hemoglobin 7.7 GM/DL (14.0-18.0); Immature Granulocytes % 1.6 %; Lymphocytes # 1.7 10*3/uL (1.4-4.0); Lymphocytes % 13.5 % (21.2-54.2); Mean Corpuscular HGB Conc 29.4 GM/DL (32-36); Mean Platelet Volume 10.4 FL (9.6-12.0); Monocytes # 0.5 10*3/uL (0.11-0.8); Neutrophils % 80.8 % (38.7-73.9); Platelet Count 252 T/CUMM (130-400); Red Blood Count 2.73 MC/CUMM (3.8-5.5); Red Cell Distribution Width 17.9 % (9.3-17.3); White Blood Count 12.6 T/CUMM (4-12)
[2022-02-16 05:36] LABS: Calcium 7.9 MG/DL (8.5-10.1); Osmolality,Calculated 332.3 MOS/KG (273-304); Phosphorous 4.7 MG/DL (2.5-4.9); Potassium 4.7 MMOL/L (3.5-5.1)
[2022-02-16] MEDS: INSULIN REGULAR 100 UNIT/ML SUBCUT SCH ×3 (06:19→17:32)
[2022-02-16] MEDS: ALBUTEROL/IPRATROPIUM 3 ML NEB RESP TX SCH ×3 (07:52→23:46)
[2022-02-16] MEDS: ACETYLCYSTEINE 20% 800 MG/4 ML VIAL RESP TX SCH (08:09)
[2022-02-16] MEDS: methylPREDNISolone SOD SUC 40 MG/1 ML VIAL IV SCH (09:16)
[2022-02-16] MEDS: CHOLECALCIFEROL 5,000 UNIT TABLET PEG SCH ×2 (09:16→22:29)
[2022-02-16] MEDS: FAMOTIDINE 20 MG TABLET PO SCH ×2 (09:19→22:28)
[2022-02-16] MEDS: CETIRIZINE 10 MG TABLET PO SCH (09:19)
[2022-02-16] MEDS: MIDODRINE 5 MG TABLET PO SCH ×2 (09:19→22:29)
[2022-02-16] MEDS: ASCORBIC ACID 500 MG TABLET PEG SCH ×2 (09:19→22:28)
[2022-02-16] MEDS: ZINC GLUCONATE 50 MG TABLET PEG SCH (09:19)
[2022-02-16] MEDS: METOPROLOL TARTRATE 25 MG TABLET PO SCH ×2 (09:19→22:28)
[2022-02-16] MEDS: ENOXAPARIN 30 MG/0.3 ML SYRINGE SUBCUT SCH (09:20)
[2022-02-16] MEDS: ZINC OXIDE 16% PASTE 57 GM TUBE TOP SCH ×2 (09:23→22:30)
[2022-02-16] MEDS: PANTOPRAZOLE 40 MG VIAL IV SCH (09:23)
[2022-02-16] MEDS: INSULIN NPH 100 UNIT/ML SUBCUT SCH ×2 (10:24→17:32)
[2022-02-16] MEDS: MELATONIN 3 MG TABLET PO SCH (22:28)
[2022-02-16] MEDS: ATORVASTATIN 80 MG TABLET PEG SCH (22:29)
[2022-02-17] MEDS: guaiFENesin 200 MG/10 ML UDCUP PO SCH ×4 (02:20→15:14)
[2022-02-17] MEDS: INSULIN REGULAR 100 UNIT/ML SUBCUT SCH ×3 (03:04→13:11)
[2022-02-17] MEDS: MEROPENEM 500 MG in SODIUM CHLORIDE 0.9% 100 ML IV SCH (04:40)
[2022-02-17 06:42] LABS: Albumin 2.4 G/DL (3.4-5.0); Basophils % 0.1 % (0.0-0.8); Bilirubin,Total 0.4 MG/DL (0.20-1.00); Calcium 8.5 MG/DL (8.5-10.1); Eosinophils % 0.1 % (0.00-10.9); Hematocrit 27.7 VOL% (42.0-52.0); Hemoglobin 8.3 GM/DL (14.0-18.0); Immature Granulocytes % 1.2 %; Immature Granulocytes Absolute 0.19 #; Lymphocytes # 1.7 10*3/uL (1.4-4.0); Lymphocytes % 10.7 % (21.2-54.2); Mean Corpuscular Volume 96.2 FL (87-102); Mean Platelet Volume 10.1 FL (9.6-12.0); Monocytes # 0.7 10*3/uL (0.11-0.8); Monocytes % 4.5 % (1.7-12.7); Neutrophils % 83.4 % (38.7-73.9); Osmolality,Calculated 322.7 MOS/KG (273-304); Platelet Count 247 T/CUMM (130-400); Potassium 4.6 MMOL/L (3.5-5.1); Red Blood Count 2.88 MC/CUMM (3.8-5.5); Red Cell Distribution Width 17.8 % (9.3-17.3); Total Protein 6.3 G/DL (6.4-8.2); White Blood Count 15.6 T/CUMM (4-12)
[2022-02-17] MEDS: ALBUTEROL/IPRATROPIUM 3 ML NEB RESP TX SCH ×2 (07:40→14:42)
[2022-02-17] MEDS: METOPROLOL TARTRATE 25 MG TABLET PO SCH (09:29)
[2022-02-17] MEDS: CETIRIZINE 10 MG TABLET PO SCH (09:29)
[2022-02-17] MEDS: FAMOTIDINE 20 MG TABLET PO SCH (09:29)
[2022-02-17] MEDS: ASCORBIC ACID 500 MG TABLET PEG SCH (09:29)
[2022-02-17] MEDS: ENOXAPARIN 30 MG/0.3 ML SYRINGE SUBCUT SCH (09:30)
[2022-02-17] MEDS: ZINC GLUCONATE 50 MG TABLET PEG SCH (09:30)
[2022-02-17] MEDS: CHOLECALCIFEROL 5,000 UNIT TABLET PEG SCH (09:30)
[2022-02-17] MEDS: ZINC OXIDE 16% PASTE 57 GM TUBE TOP SCH (09:30)
[2022-02-17] MEDS: INSULIN NPH 100 UNIT/ML SUBCUT SCH (09:30)
[2022-02-17] MEDS: MIDODRINE 5 MG TABLET PO SCH (09:30)
[2022-02-17] MEDS: methylPREDNISolone SOD SUC 40 MG/1 ML VIAL IV SCH (09:34)
[2022-02-17] MEDS: PANTOPRAZOLE 40 MG VIAL IV SCH (09:35)
[2022-02-17] MEDS ORDERED: ERTAPENEM 1,000 MG in SODIUM CHLORIDE 0.9% 100 ML IV SCH (11:00)
[2022-02-17 13:01] VITALS: BP 159/88
== END 2022-02-17 16:03 | DRG 177 ==
LOC: N.ED 18:33 → N.3E 23:10 → SUATTDRO 23:10 → N.3E 02-08 02:25
PROVIDERS: ADMIT Internal Medicine; ATTEND Internal Medicine